=== PATIENT | male | born 1985 | race Two or more races ===

== ENCOUNTER 2016-11-12 06:13 | Emergency (ER) | payer BC, OTHER ==
[~2016-11-12] VITALS: Ht 167.6 cm; Wt 56.7 kg
[2016-11-12 06:28] VITALS: BP 126/82
[2016-11-12 06:55] LABS: Basophils # (auto) 0 uL; Eosinophils # (auto) 0 uL; Hematocrit 43.5 % (41.0-53.0); Hemoglobin 14.8 g/dL (13.5-17.5); Lymphocytes # (auto) 0.7 uL; Lymphocytes % (auto) 4.5 % (10.0-50.0); Mean Corpuscular Volume 94.1 fL (80.0-100.0); Mean Platelet Volume 8.6 fL (7.4-10.4); Monocytes # (auto) 0.4 uL; Monocytes % (auto) 2.4 % (0.0-12.0); Neutrophils # (auto) 14.4 uL; Neutrophils % (auto) 93.1 % (37.0-80.0); Platelet Count (auto) 261 10^3/uL (140-450); Red Cell Distribution Width 13.1 % (11.6-16.0); White Blood Cell 15.4 10^3/uL (4.4-10.8)
[2016-11-12 07:26] LABS: Albumin 4.6 g/dL (3.4-5.0); BUN/Creatinine Ratio 16.3; Bilirubin, Total 0.7 mg/dL (0.2-1.0); Calcium 9.1 mg/dL (8.5-10.1); Magnesium 2.1 mg/dL (1.6-2.6); Potassium 3.3 mmol/L (3.5-5.1)
== END 2016-11-12 11:49 | disposition left against medical advice (07) ==
LOC: ER 06:13
DX: R10.9 Unspecified abdominal pain (principal); R11.2 Nausea with vomiting, unspecified; Z53.21 Procedure and treatment not carried out due to patient leaving prior to being seen by health care provider
CPT/HCPCS: 36415; 80053; 83690; 83735; 85025

== ENCOUNTER 2019-01-10 18:54 | Emergency (ER) | payer OTHER ==
[~2019-01-10] VITALS: Ht 165.1 cm; Wt 56.7 kg
[2019-01-10 20:53] VITALS: BP 134/77
== END 2019-01-10 21:08 | disposition home or self-care (01) ==
LOC: ER 19:01
DX: G56.31 Lesion of radial nerve, right upper limb (principal)
CPT/HCPCS: 29125; 73090; 73110

== ENCOUNTER 2020-05-14 19:01 | Emergency (ER) | payer OTHER ==
[~2020-05-14] VITALS: Ht 165.1 cm; Wt 56.7 kg
[2020-05-14 21:55] VITALS: BP 140/74
== END 2020-05-14 23:09 | disposition home or self-care (01) ==
LOC: ER 19:03
DX: S69.92XA Unspecified injury of left wrist, hand and finger(s), initial encounter (principal); L03.012 Cellulitis of left finger; W23.0XXA Caught, crushed, jammed, or pinched between moving objects, initial encounter; Y93.89 Activity, other specified; Y92.89 Other specified places as the place of occurrence of the external cause; Y99.0 Civilian activity done for income or pay
CPT/HCPCS: 10060; 73140

== ENCOUNTER 2022-02-28 21:44 | Emergency (ER) | payer OTHER ==
[~2022-02-28] VITALS: Ht 165.1 cm; Wt 56.8 kg
[2022-02-28 22:19] VITALS: BP 121/69
[2022-02-28 23:03] LABS: Basophils # (auto) 0.1 10 ^3/uL (0-0.2); Basophils % (auto) 0.4 % (0.0-2.0); Eosinophils # (auto) 0 10 ^3/uL (0-0.8); Eosinophils % (auto) 0.1 % (0.0-7.0); Hematocrit 41.5 % (41.0-53.0); Hemoglobin 13.5 g/dL (13.5-17.5); Lymphocytes # (auto) 0.9 10 ^3/uL (0.4-5.4); Lymphocytes % (auto) 7.1 % (10.0-50.0); Mean Corpuscular Hemoglobin 30.6 pg (28.0-32.0); Mean Corpuscular Hgb Conc. 32.5 g/dL (32.0-36.0); Mean Corpuscular Volume 94.2 fL (80.0-100.0); Monocytes # (auto) 0.7 10 ^3/uL (0-1.3); Monocytes % (auto) 5.4 % (0.0-12.0); Neutrophils # (auto) 11.4 10 ^3/uL (1.6-8.6); Red Cell Distribution Width 13.2 % (11.8-14.3); White Blood Cell 13.1 10^3/uL (4.4-10.8)
[2022-02-28 23:25] LABS: Albumin 4.5 g/dL (3.4-5.0); BUN/Creatinine Ratio 19.1; Calcium 8.7 mg/dL (8.5-10.1); Potassium 4.2 mmol/L (3.5-5.1)
[2022-02-28 23:27] LABS: Bilirubin, Total 0.4 mg/dL (0.2-1.0); Total Protein 7.5 g/dL (6.4-8.2)
[2022-03-01] MEDS ORDERED: LEVO-28 PO (00:11)
== END 2022-03-01 02:27 | disposition home or self-care (01) ==
LOC: ER 21:46
DX: S09.8XXA Other specified injuries of head, initial encounter (principal); R55 Syncope and collapse; R41.82 Altered mental status, unspecified; F12.10 Cannabis abuse, uncomplicated; W18.09XA Striking against other object with subsequent fall, initial encounter; Y93.89 Activity, other specified; Y92.89 Other specified places as the place of occurrence of the external cause; Y99.8 Other external cause status
CPT/HCPCS: 36415; 70450; 80053; 85025

== ENCOUNTER 2022-03-03 12:58 | Emergency (ER) | payer OTHER ==
[~2022-03-03] VITALS: Ht 165.1 cm; Wt 57.0 kg
[~2022-03-03 12:58] MED LIST: LEVO-28 PO
[2022-03-03 18:24] VITALS: BP 122/72
== END 2022-03-03 17:29 | disposition home or self-care (01) ==
LOC: ER 12:58
DX: S09.90XA Unspecified injury of head, initial encounter (principal); F12.10 Cannabis abuse, uncomplicated; X58.XXXA Exposure to other specified factors, initial encounter; Y93.89 Activity, other specified; Y92.89 Other specified places as the place of occurrence of the external cause; Y99.8 Other external cause status
CPT/HCPCS: 70450; 93005